=== PATIENT | male | born 1995 | race Caucasian/White ===

== ENCOUNTER 2018-10-10 02:30 | Emergency (ER) | payer OTHER ==
[~2018-10-10] VITALS: Ht 188 cm; Wt 86.2 kg
--- NOTE | 2018-10-10 02:30 | NUR ---
PT BIB [facility], PREBOOK. TAKEN TO BED 7
[2018-10-10 02:35] VITALS: BP 149/99
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
--- NOTE | 2018-10-10 02:47 | NUR ---
Dr. Nash evaluating patient at bedside.
[2018-10-10 02:56] VITALS: BP 149/99
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
== END 2018-10-10 02:56 ==
LOC: MED 02:30
DX: F10.129 Alcohol abuse with intoxication, unspecified (principal); V89.2XXA Person injured in unspecified motor-vehicle accident, traffic, initial encounter; Y93.89 Activity, other specified; Y92.410 Unspecified street and highway as the place of occurrence of the external cause; Y99.8 Other external cause status; Y90.9 Presence of alcohol in blood, level not specified
CPT/HCPCS: 99283